=== PATIENT | female | born 2000 | race Caucasian/White ===

== ENCOUNTER 2022-07-08 10:23 | Inpatient (IN) ==
[2022-07-08 11:43] LABS: Basophils # (auto) 0.03 K/uL (0-0.2); Basophils % (auto) 0.4 %; Eosinophils # (auto) 0.07 K/uL (0-0.50); Hematocrit (blood only) 43.2 % (37.0-47.0); Hemoglobin 14.5 g/dl (12.0-16.0); Immature Granulocytes # (auto) 0.02 K/uL (0.01-0.20); Immature Granulocytes % (auto) 0.3 %; Lymphocytes # (auto) 1.37 K/uL (1.2-3.4); Lymphocytes % (auto) 19.1 %; Mean Corpuscular Hemoglobin 29.5 pg (25.0-34.0); Mean Corpuscular Hgb Conc 33.6 g/dL (32.0-36.0); Mean Corpuscular Volume 87.8 fL (80.0-100.0); Mean Platelet Volume 9.8 fL (9.4-12.4); Monocytes # (auto) 0.31 K/uL (0.11-0.59); Monocytes % (auto) 4.3 %; Neutrophils # (auto) 5.39 K/uL (1.40-6.50); Neutrophils % (auto) 74.9 %; Platelet Count 350 K/uL (130-400); RDW Coefficient of Variation 12.5 % (11.5-14.5); Red Blood Count 4.92 M/uL (4.20-5.40); White Blood Count 7.19 K/ul (4.8-10.8)
[2022-07-08 11:59] LABS: Albumin Level 4.3 gm/dl (3.4-5.0); Bilirubin,Total 0.4 mg/dl (0.2-1.0); Calcium 9.4 mg/dl (8.6-10.3); Potassium 3.9 mmol/L (3.5-5.1)
[2022-07-08 12:01] LABS: Acetaminophen < 3 ug/ml (10-30); Salicylate < 3.0 mg/dl (3.0-30)
[2022-07-08 12:05] LABS: Albumin Globulin Ratio 1.5 (0.9-2); BUN Creatinine Ratio 9.9 (10-20); Creatinine Clr Calc Pharmacy 108.9 ml/min; Est GFR (African American) 118.6 ml/min; Est GFR (Non-African American) 102.4 ml/min; Globulin 2.9 gm/dl (2.5-4.0); Total Protein 7.2 gm/dl (6.0-8.3)
[2022-07-08 12:18] LABS: Pregnancy Test, Serum Negative (Negative)
--- NOTE | 2022-07-08 12:39 | Emergency Department Note ---
Impression & Plan Depression with suicidal ideation ED Provider Note NAME: MARIA ELENA DIAZ AGE: 21 SEX: F ARRIVES VIA: Walk-In INFORMANT: Patient ED PROVIDER(S): Aquiles Silverman MD CHIEF COMPLAINT: Suicidal ideation PLAN: Disposition: Inpatient psychiatric treatment/bed search MEDICAL DECISION MAKING: The patient is a pleasant 21-year-old woman with a past medical history depr ession, migraine, borderline personality disorder who presents to the emergency department via walk-in for evaluation of suicidal ideation with plan to hang herself. Patient has a history of prior psychiatric admissions most recently in 2019 where she was treated at the [facility]. She she did try to kill her self by overdose when she was in high school. She reports feeling hopeless. She denies auditory hallucinations. She reports she patient was treated for an otitis media which is now improved. Otherwise she denies fevers, chills, cough, congestion, GI or symptoms. She is interested in voluntary psychiatric admission. On arrival the patient is no acute distress, afebrile stable vital signs. He is melancholy appearing. She endorses depression with suicidal ideation and plan. WBC, H/H and platelets within normal limits. Chemistry without metabolic acidosis. Electrolytes LFTs unremarkable. TSH within limits. hCG negative. UA without evidence of infection. COVID-19 RNA, KEISHA test was negative. Patient was medically cleared. The patient is interested in voluntary inpatient psychiatric treatment. Thus, bed search initiated for voluntary placement. The patient was accepted to [facility] for inpatient psychiatric treatment. 201 signed. Triage Nursing notes reviewed and agree them. Prior/outside medical records reviewed Vital Signs: reviewed Differential diagnosis: Mood disorder, infection, hypoglycemia, electrolyte abnormalities, cardiac sources, intracerebral event, toxicologic, trauma, neurologic, as well as other pathologies. ER treatment provided: See below. Laboratory studies: See below HPI: The patient is a pleasant 21-year-old woman with a past medical history depression, migraine, borderline personality disorder who presents to the emergency department via walk-in for evaluation of suicidal ideation with plan to hang herself. Patient has a history of prior psychiatric admissions most recently in 2018 where she was treated at the [facility]. She she did try to kill her self by overdose when she was in high school. She reports feeling hopeless. She denies auditory hallucinations. She reports she patient was treated for an otitis media which is now improved. Otherwise she denies fevers, chills, cough, congestion, GI or symptoms. She is interested in voluntary psychiatric admission. ROS: See above HPI for pertinent positives & negatives. A total of 10 systems reviewed and were otherwise negative. VITALS:See Below PHYSICAL EXAMINATION: GENERAL: Awake, alert, melancholy-appearing, in no distress HENT: Normocephalic, atraumatic. Oropharynx unremarkable. EYES: Normal conjunctiva. Sclera non-icteric. NECK: Supple. No nuchal rigidity. FROM. No JVD. RESPIRATORY: Clear to auscultation. CARDIAC: Regular rate, normal rhythm. Extremities warm and well perfused. Pulses equal. ABDOMEN: Soft, non-distended. No tenderness to palpation. No rebound or guarding. No masses. RECTAL: Deferred. MUSCULOSKELETAL: Chest examination reveals no tenderness. The back is symmetrical on inspection without obvious abnormality. There is no CVA tenderness to palpation. No joint edema. LOWER EXTREMITIES: Calves are equal size bilaterally and non-tender. No edema. No discoloration. NEURO: Normal sensorium. No sensory or motor deficits noted. SKIN: No rash or jaundice noted. PSYCH: Depression, suicidal ideation with plan. Denies auditory hallucinations. Aquiles Silverman MD Past Med/Surg History Medical History (Updated 07/08/22 @ 16:40 by Aquiles Silverman MD) Anxiety Borderline personality disorder Cephalalgia Depression Suicidal ideation Surgical History S/P cholecystectomy Status post myringotomy with insertion of tube Family History Other No significant family history Social History Smoking Status: Never smoker Hx Alcohol Use: No Hx Substance Use: No Preferred Language: Telugu Communication Ability: Effective Web Assistant Required: No Beliefs That Will Affect Care: None marital status: Single Current Living Situation: Other Current Living Situation Comment: Roommates current occupational status: student Feels Safe at Home: Yes Gender Identity: Female Assistive Devices: Glasses Assistive Devices Comment: glasses Allergies Allergies Allergy/AdvReac Type Severity Reaction Status Date / Time hydromorphone Allergy Mild chest pain Verified 12/29/21 15:47 clonidine AdvReac Intermediate HYPOTENSION Verified 12/29/21 15:47 camphor [From Biofreeze] AdvReac Unknown Rash Verified 12/29/21 15:47 menthol [From Biofreeze] AdvReac Unknown Rash Verified 12/29/21 15:47 topiramate [From Topamax] AdvReac Unknown KIDNEY Verified 12/29/21 15:47 STONES Dilaudid TABS Allergy Unknown Uncoded 12/29/21 15:47 Home Meds Home Medications Medication Instructions Recorded Confirmed levonorgestrel 21 mcg/24 hours (8 intrauterine 03/06/20 07/03/21 yrs) 52 mg intrauterine device (Mirena) amoxicillin 875 mg tablet 875 mg PO BID 07/08/22 07/08/22 lurasidone 20 mg tablet 20 mg PO DAILY 07/08/22 07/08/22 rizatriptan 10 mg tablet 10 mg PO DIRECTED 07/08/22 07/08/22 Previous Rx's Medication Instructions Recorded rimegepant 75 mg disintegrating 75 mg PO DAILY PRN migraine 12/29/21 tablet (Nurtec ODT) headache #8 tabs Results & Data (ED) Vital Signs Vital Signs - 24 hr 07/08/22 10:29 07/08/22 12:27 Temperature 36.8 C Temperature Source Skin Pulse Rate 94 H Pulse Rate [Left] 89 Respiratory Rate 20 18 Respiratory Effort / Characteristics Non-Labored Spontaneous Non-Labored Spontaneous Respiratory Depth Normal Normal Blood Pressure 128/81 Blood Pressure [Left Arm] 138/85 Blood Pressure Mean 96 Blood Pressure Mean [Left Arm] 102 Pulse Oximetry 97 99 Oxygen Delivery Method Room Air Room Air Sepsis Recent Fever Within 48 Hours No Sepsis New/Unexplained Change in Mental Status N/A Sepsis Action Taken by Nursing No Action Required Laboratory Data Attestation: I reviewed the patient's lab results. 07/08/22 11:23 07/08/22 11:23 Lab Results 07/08/22 07/08/22 07/08/22 Range/Units 10:46 11:23 11:23 WBC 7.19 (4.8-10.8) K/ul RBC 4.92 (4.20-5.40) M/uL Hgb 14.5 (12.0-16.0) g/dl Hct 43.2 (37.0-47.0) % MCV 87.8 (80.0-100.0) fL MCH 29.5 (25.0-34.0) pg MCHC 33.6 (32.0-36.0) g/dL RDW Std Deviation 40.0 (36.4-46.3) fL RDW Coeff of Roslyn 12.5 (11.5-14.5) % Plt Count 350 (130-400) K/uL MPV 9.8 (9.4-12.4) fL Immature Gran % (Auto) 0.3 % Neut % (Auto) 74.9 % Lymph % (Auto) 19.1 % [place] % (Auto) 4.3 % Eos % (Auto) 1.0 % Baso % (Auto) 0.4 % Neut # (Auto) 5.39 (1.40-6.50) K/uL Lymph # (Auto) 1.37 (1.2-3.4) K/uL [place] # (Auto) 0.31 (0.11-0.59) K/uL Eos # (Auto) 0.07 (0-0.50) K/uL Baso # (Auto) 0.03 (0-0.2) K/uL Immature Gran # (Auto) 0.02 (0.01-0.20) K/uL Sodium 139 (136-145) mmol/L Potassium 3.9 (3.5-5.1) mmol/L Chloride 105 (98-107) mmol/L Carbon Dioxide 27 (21-32) mmol/L Anion Gap 7 (3-11) BUN 8 (6-23) mg/dl Creatinine 0.81 (0.6-1.2) mg/dl Est Cr Clr Drug Dosing 108.9 ml/min Est GFR ( Amer) 118.6 ml/min Est GFR (Non-Af Amer) 102.4 ml/min BUN/Creatinine Ratio 9.9 L (10-20) Glucose 92 (70-99(Fasting)) mg/dl Calcium 9.4 (8.6-10.3) mg/dl Total Bilirubin 0.4 (0.2-1.0) mg/dl AST 23 (13-39) U/L ALT 36 (7-52) U/L Alkaline Phosphatase 98 (34-104) U/L Total Protein 7.2 (6.0-8.3) gm/dl Albumin 4.3 (3.4-5.0) gm/dl Globulin 2.9 (2.5-4.0) gm/dl Albumin/Globulin Ratio 1.5 (0.9-2) TSH (0.300-4.500) uIu/ml HCG, Qual (Negative) Salicylates (3.0-30) mg/dl Acetaminophen (10-30) ug/ml Ethyl Alcohol mg/dL (<10.0) mg/dl SARS-CoV-2, RNA, NAAT NEGATIVE (NEGATIVE) 07/08/22 07/08/22 07/08/22 Range/Units 11:23 11:23 11:23 WBC (4.8-10.8) K/ul RBC (4.20-5.40) M/uL Hgb (12.0-16.0) g/dl Hct (37.0-47.0) % MCV (80.0-100.0) fL MCH (25.0-34.0) pg MCHC (32.0-36.0) g/dL RDW Std Deviation (36.4-46.3) fL RDW Coeff of Roslyn (11.5-14.5) % Plt Count (130-400) K/uL MPV (9.4-12.4) fL Immature Gran % (Auto) % Neut % (Auto) % Lymph % (Auto) % [place] % (Auto) % Eos % (Auto) % Baso % (Auto) % Neut # (Auto) (1.40-6.50) K/uL Lymph # (Auto) (1.2-3.4) K/uL [place] # (Auto) (0.11-0.59) K/uL Eos # (Auto) (0-0.50) K/uL Baso # (Auto) (0-0.2) K/uL Immature Gran # (Auto) (0.01-0.20) K/uL Sodium (136-145) mmol/L Potassium (3.5-5.1) mmol/L Chloride (98-107) mmol/L Carbon Dioxide (21-32) mmol/L Anion Gap (3-11) BUN (6-23) mg/dl Creatinine (0.6-1.2) mg/dl Est Cr Clr Drug Dosing ml/min Est GFR ( Amer) ml/min Est GFR (Non-Af Amer) ml/min BUN/Creatinine Ratio (10-20) Glucose (70-99(Fasting)) mg/dl Calcium (8.6-10.3) mg/dl Total Bilirubin (0.2-1.0) mg/dl AST (13-39) U/L ALT (7-52) U/L Alkaline Phosphatase (34-104) U/L Total Protein (6.0-8.3) gm/dl Albumin (3.4-5.0) gm/dl Globulin (2.5-4.0) gm/dl Albumin/Globulin Ratio (0.9-2) TSH 0.718 (0.300-4.500) uIu/ml HCG, Qual (Negative) Salicylates < 3.0 L (3.0-30) mg/dl Acetaminophen < 3 L (10-30) ug/ml Ethyl Alcohol mg/dL < 10.0 (<10.0) mg/dl SARS-CoV-2, RNA, NAAT (NEGATIVE) 07/08/22 Range/Units 11:23 WBC (4.8-10.8) K/ul RBC (4.20-5.40) M/uL Hgb (12.0-16.0) g/dl Hct (37.0-47.0) % MCV (80.0-100.0) fL MCH (25.0-34.0) pg MCHC (32.0-36.0) g/dL RDW Std Deviation (36.4-46.3) fL RDW Coeff of Roslyn (11.5-14.5) % Plt Count (130-400) K/uL MPV (9.4-12.4) fL Immature Gran % (Auto) % Neut % (Auto) % Lymph % (Auto) % [place] % (Auto) % Eos % (Auto) % Baso % (Auto) % Neut # (Auto) (1.40-6.50) K/uL Lymph # (Auto) (1.2-3.4) K/uL [place] # (Auto) (0.11-0.59) K/uL Eos # (Auto) (0-0.50) K/uL Baso # (Auto) (0-0.2) K/uL Immature Gran # (Auto) (0.01-0.20) K/uL Sodium (136-145) mmol/L Potassium (3.5-5.1) mmol/L Chloride (98-107) mmol/L Carbon Dioxide (21-32) mmol/L Anion Gap (3-11) BUN (6-23) mg/dl Creatinine (0.6-1.2) mg/dl Est Cr Clr Drug Dosing ml/min Est GFR ( Amer) ml/min Est GFR (Non-Af Amer) ml/min BUN/Creatinine Ratio (10-20) Glucose (70-99(Fasting)) mg/dl Calcium (8.6-10.3) mg/dl Total Bilirubin (0.2-1.0) mg/dl AST (13-39) U/L ALT (7-52) U/L Alkaline Phosphatase (34-104) U/L Total Protein (6.0-8.3) gm/dl Albumin (3.4-5.0) gm/dl Globulin (2.5-4.0) gm/dl Albumin/Globulin Ratio (0.9-2) TSH (0.300-4.500) uIu/ml HCG, Qual Negative (Negative) Salicylates (3.0-30) mg/dl Acetaminophen (10-30) ug/ml Ethyl Alcohol mg/dL (<10.0) mg/dl SARS-CoV-2, RNA, NAAT (NEGATIVE) Administered Medications Amoxicillin (Amoxicillin Susp 400 Mg/5 Ml) 875 mg PO BID DANNY Stop: 07/14/22 09:00 Last Admin: 07/08/22 22:38 Dose: 875 mg Documented By: TAWANA Discontinued Medications Lurasidone HCl (Lurasidone Hcl 40 Mg Tab) 20 mg PO DAILY STA Stop: 07/08/22 21:18 Last Admin: 07/08/22 21:43 Dose: 20 mg Documented By: TAWANA Discharge Plan Visit Data Chief Complaint: Mental Health Evaluation Stated Complaint: MHE ED Provider: Aquiles Silverman Discharge Problem: Depression with suicidal ideation Patient Disposition: Admitted As Inpatient Discharge Instructions Interventions: ED Discharge Assessment Last Done: 07/08/22 17:01
[2022-07-08 14:13] LABS: Appearance Urine Clear (Clear); Bacteria Urine Automated Negative (Negative); Bilirubin Urine Negative (Negative); Blood Urine 2+ (Negative); Cast Urine Automated 0 /lpf (0-5); Color Urine Yellow; Epithelial Cell Urine Auto >30 /lpf (0-5); Glucose Urine UA Negative (Negative); Ketones Urine Negative (Negative); Leukocyte Esterase Urine Negative (Negative); Nitrite Urine Negative (Negative); Protein Urine Negative (Negative); Specific Gravity Urine 1.008 (1.000-1.030); Urobilinogen Urine Negative (Negative); pH Urine 6.5 (4.5-7.5)
[2022-07-08 15:27] LABS: Amphetamines+Metham, Urine Neg (Neg); Barbiturates, Urine Neg (Neg); Benzodiazepine, Urine Neg (Neg); Cocaine, Urine Neg (Neg); MDMA (Ecstacy), Urine Neg (Neg); Methadone, Urine Neg (Neg); Opiate, Urine Neg (Neg); Phencyclidine, Urine Neg (Neg)
[2022-07-08] MEDS ORDERED: MAGNESIUM HYDROXIDE SUSP 30 ML UDC PO PRN (16:33)
[2022-07-08] MEDS ORDERED: ALUMINUM/MAGNESIUM SUSP 30 ML UDC PO PRN (16:33)
[2022-07-08] MEDS ORDERED: hydrOXYzine HCl 25 MG TAB PO PRN ×2 (16:33)
[2022-07-08] MEDS ORDERED: ACETAMINOPHEN 325 MG TAB PO PRN (16:33)
[2022-07-08] MEDS ORDERED: BISMUTH SUBSALICYLATE LIQD 236 ML PO PRN (16:33)
[2022-07-08] MEDS ORDERED: SODIUM CHLORIDE 0.65% NA SOLN 45 ML (OCEAN) PRN (16:33)
[2022-07-08] MEDS ORDERED: RIZATRIPTAN BENZOATE 10 MG TAB PO SCH (16:45)
[2022-07-08] MEDS ORDERED: LURASIDONE 20 MG PO SCH (16:45)
[2022-07-08] MEDS ORDERED: AMOXICILLIN 875 MG PO SCH (21:00)
[2022-07-08] MEDS ORDERED: LURASIDONE HCL 40 MG TAB PO STA (21:17)
[2022-07-08] MEDS ORDERED: AMOXICILLIN 250 MG CAP PO SCH (22:00)
[2022-07-08] MEDS: AMOXICILLIN SUSP 400 MG/5 ML PO SCH (22:38)
[2022-07-09] MEDS: AMOXICILLIN SUSP 400 MG/5 ML PO SCH ×2 (08:52→20:40)
[2022-07-09] MEDS ORDERED: LURASIDONE HCL 40 MG TAB PO SCH ×3 (12:00)
--- NOTE | 2022-07-09 15:23 | History & Physical ---
Date of Service July 09, 2022 Impression / Recommendations Impression 21 y/o F with Hx bipolar II disorder and borderline personality disorder who is admitted with suicidal thoughts. She reports partial benefit (and no adverse effects) with low-dose lurasidone. (1) Bipolar II disorder, most recent episode major depressive: (2) Borderline personality disorder: Plan The patient was admitted to the [facility] ([facility]) on q15 min checks (behavioral with suicide precautions) for safety. The patient will participate in group, recreational, and milieu therapies and will be offered additional individual and family sessions as clinically appropriate. 07/09/2022: Risks and benefits of, and alternatives to, the use of lurasidone (Latuda) for mood were reviewed. This included but was not limited to issues known potentially to be associated with use of such medication, especially at high doses or with longer use, including sedation, weight gain, problems with glucose metabolism including Type II diabetes, problems with lipid metabolism, cardiac conduction problems, or rarely involuntary movements, parkinsonian symptoms, or even life-threatening Neuroleptic Malignant Syndrome. Discussed the need for periodic monitoring of fasting glucose or Hemoglobin A1c and lipid panel, and these were ordered for baseline monitoring. The patient agreed to increase in lurasidone. * increase lurasidone to 40 mg every day with lunch Inventory Assets Strengths: supportive relationships, has local supports,voluntary, good insight, intelli gent employed, Needs: safety and stabilization, medication adjustment, additional coping skills Suicide Risk Level Suicide Risk Level: Moderate (q15 min suicide checks) Risk Factors Assessment Male: No : Yes Do You Have Access To A Gun?: No Health Problems: No Mental Health Diagnoses: Yes Previous Attempt: Yes Previous Psychiatric Hospitalization: Yes Protective Factors Assessment Employed: Yes ([employer]) Stable Relationships: Yes Psychiatric History Identifying Data MARIA ELENA DIAZ is a 21-year-old F who currently lives in a house with her boyfriend, has a history of [], and was admitted on 07/08/22 16:33 on a 201 voluntary commitment for suicidal thoughts. Chief Complaint "Been suicidal". History of Present Illness As part of my review of the medical record, I read the following ED psychiatric case assemblermanager news: "The patient continues to express feeling suicidal with plan and intent to hang herself. She reports stressors of work and her fiancs mental health problems (reports he isnt doing well himself at this time). The patient reports depressive symptoms of anergia, anhedonia, crying spells and hyper- somnolence. The patient reports poor appetite and increased sleep (up to 12 hours per night). The patient reports no current manic symptoms but reports history of hypomania. The patient denies current self-injurious behaviors but reports a history of cutting when she was in high school. The patient reports a trauma / abuse history but requested not to elaborate at this time." Pt reports carrying a diagnosis of "bipolar II and borderline personality disorder" with a history of psychiatric admissions to [facility] in 2012 and 2018 and to [facility] in 2014. She reports a suicide attempt in 9th grade and intermittent non-suicidal self-injury intermittently since then. She's used a large number of medications. The longest was aripiprazole, which she took for 5 years, 3 of that on Abilify Maintena ("I wasn't good at remembering to take it") until "it just stopped working". More recently, she's been on lurasidone 20 mg at lunchtime, which she says "helped a lot with stability" but she feels as if "it's not working as well". Hasn't ever taken a higher dose. Past Psychiatric History Previous Psych History: unstable moods dating from adolescence, Dx'd with bipolar II and borderline personality disorder Current Psychiatric Diagnosis: MDD Previous Psych Admissions: [facility] in 2012 and 2018, [facility] in 2014 Do You Have Access To A Gun?: No History of Previous Suicide Attempt: No Allergies Allergy/AdvReac Type Severity Reaction Status Date / Time hydromorphone Allergy Mild chest pain Verified 12/29/21 15:47 clonidine AdvReac Intermediate HYPOTENSION Verified 12/29/21 15:47 camphor [From Biofreeze] AdvReac Unknown Rash Verified 12/29/21 15:47 menthol [From Biofreeze] AdvReac Unknown Rash Verified 12/29/21 15:47 topiramate [From Topamax] AdvReac Unknown KIDNEY Verified 12/29/21 15:47 STONES Dilaudid TABS Allergy Unknown Uncoded 12/29/21 15:47 Home Medications Medication Instructions Recorded Confirmed Type levonorgestrel 21 mcg/24 hours (8 intrauterine 03/06/20 07/03/21 History yrs) 52 mg intrauterine device (Mirena) rimegepant 75 mg disintegrating 75 mg PO DAILY PRN migraine 12/29/21 07/08/22 Rx tablet (Nurtec ODT) headache #8 tabs amoxicillin 875 mg tablet 875 mg PO BID 07/08/22 07/08/22 History lurasidone 20 mg tablet 20 mg PO DAILY 07/08/22 07/08/22 History rizatriptan 10 mg tablet 10 mg PO DIRECTED 07/08/22 07/08/22 History lorazepam 0.5 mg tablet 0.5 mg PO DAILY PRN Anxiety 07/09/22 07/09/22 History Family History Family History of: Doesn't Know Family Mental Health History Comment: Pt feels that family likely has mental health diagnoses but that they do not talk about it. Alcohol History Hx of Alcohol Use Over the Past 12 Months: No AUDIT Total Score: 0 Smoking Use Have You Smoked or Used Tobacco Products in the Last 30 Days: No tobacco type: cigarettes Smoking Status: Never smoker Substance History Hx of Prescription Med Misuse Over the Past 12 Months: No Hx of Over the Counter Med Misuse Over the Past 12 Months: No Hx of Inhalent Misuse Over the Past 12 Months: No Hx of Organic Substance Use Over the Past 12 Months: No Hx of Illegal Substances/Street Drug Use Over Past 12 Months: No Problems as a Result of Past Substance Use: None Identified Personal History Living Arrangements: Home Highest Grade Completed: College and Graduate School Highest Grade Completed Comment: [employer], [employer] for Masters in Elementary Ed, fully virtual and currently enrolled Marital Status: Living w/ Signif. Other Number Of Children: 0 Beliefs That Will Affect Care: None Patient History Medical History (Updated 07/09/22 @ 17:31 by Chevy Quintana MD) Anxiety Borderline personality disorder Cephalalgia Depression Suicidal ideation Surgical History S/P cholecystectomy Status post myringotomy with insertion of tube Family History Other No significant family history Social History Smoking Status: Never smoker Hx Alcohol Use: No Hx Substance Use: No Preferred Language: Malagasy Communication Ability: Effective Card Grinder Helper Required: No Beliefs That Will Affect Care: None marital status: Single Current Living Situation: Other Current Living Situation Comment: Roommates current occupational status: student Feels Safe at Home: Yes Gender Identity: Female Assistive Devices: Glasses Assistive Devices Comment: glasses Review of Systems Psychiatric: + depression, + anhedonia, + abnormal sleep pattern, + change in appetite and + anxiety; no hallucinations Physical Exam Psychiatric: Orientation: alert, oriented to person, oriented to place, oriented to time and cooperative Apperance: appropriately dressed and appropriately groomed Eye Contact: good eye contact Motor Behavior: steady gait and station and no abnormal motor movements Speech: normal rate/rhythm/volume of speech Affect: + constricted affect Mood: + depressed mood and + anxious mood Thought Process: + circumstantial thought process and + tangential thought process Thought Content: reality based without delusions Suicidal Thoughts: denies suicidal plan and denies suicidal intent; + reports suicidal thoughts Homicidal Thoughts: denies homicidal thoughts Hallucinations: no auditory hallucinations and no visual hallucinati ons Cognition: recent memory grossly intact and remote memory grossly intact Estimated Intelligence: average estimated intelligence Insight: + fair insight Judgment: + fair judgement Vital Signs (Past 24 Hours): Last Vital Signs Temp 36.5 C 07/09/22 06:48 Pulse 79 07/09/22 06:49 Resp 16 07/09/22 06:48 BP 125/84 07/09/22 06:49 Pulse Ox 96 07/08/22 17:14 O2 Del Method Room Air 07/08/22 17:14 Exam Statement: A physical exam was performed in the ED for the purposes of medical clearance. I accept that physical as correct and adequate for the purposes of the inpatient physical exam. Results & Data ([facility]) Laboratory Results Laboratory Results - last 24 hr 07/08/22 Unknown Urine Opiates Screen Neg Ur Methadone, Qual Neg Urine Barbiturates Neg Ur Phencyclidine (PCP) Neg U Amphetamin/Meth Scrn Neg MDMA (Ecstasy) Screen Neg U Benzodiazepines Scrn Neg Ur Cocaine Metabolite Neg U Marijuana (THC) Screen Neg Current Inpatient Medications Current Inpatient Medications: Current Inpatient Medications Acetaminophen (Acetaminophen 325 Mg Tab) 650 mg PO Q4H PRN PRN Reason: Headache or Minor Fever Stop: 08/07/22 16:32 Al Hydrox/Mg Hydrox/Simethicone (Aluminum/Magnesium Susp 30 Ml Udc) 30 ml PO Q4H PRN PRN Reason: GI Upset Stop: 08/07/22 16:32 Amoxicillin (Amoxicillin Susp 400 Mg/5 Ml) 875 mg PO BID DANNY Stop: 07/14/22 09:00 Last Admin: 07/09/22 08:52 Dose: 875 mg Bismuth Subsalicylate (Bismuth Subsalicylate Liqd 236 Ml) 15 ml PO PRN PRN PRN Reason: Loose Stool Stop: 08/07/22 16:32 Hydroxyzine HCl (Hydroxyzine Hcl 25 Mg Tab) 50 mg PO HSZ PRN PRN Reason: Insomnia Stop: 08/07/22 16:32 Hydroxyzine HCl (Hydroxyzine Hcl 25 Mg Tab) 25 mg PO Q4H PRN PRN Reason: Anxiety Stop: 08/07/22 16:32 Lurasidone HCl (Lurasidone Hcl 40 Mg Tab) 40 mg PO 1200 DANNY Stop: 08/08/22 11:59 Last Admin: 07/09/22 12:47 Dose: 40 mg Magnesium Hydroxide (Magnesium Hydroxide Susp 30 Ml Udc) 30 ml PO DAILY PRN PRN Reason: Constipation Stop: 08/07/22 16:32 Sodium Chloride (Sodium Chloride 0.65% Na Soln 45 Ml ([place])) 1 - 2 sprays NA PRN PRN PRN Reason: Nasal Dryness/Congestion Stop: 08/07/22 16:32
[2022-07-10] MEDS: AMOXICILLIN SUSP 400 MG/5 ML PO SCH ×2 (08:30→21:11)
[2022-07-10] MEDS ORDERED: KETOROLAC TROMETHAMINE 60 MG/2 ML VIAL IM ONE (10:00)
--- NOTE | 2022-07-10 11:15 | Psychiatric Progress Note ---
Date of Service July 10, 2022 Impression / Recommendations Impression 21 y/o F with Hx bipolar II disorder and borderline personality disorder who is admitted with suicidal thoughts. She reported partial benefit (and no adverse effects) with low-dose lurasidone. 07/10/2022: Pt greeted me at the unit door to inform me that she has a migraine that started last night. She says she told staff about it twice (but there are no notes reflecting this). She says "the only thing that will work now is Toradol". Lurasidone was increased to 40 mg with lunch yesterday and no problems were reported until today, when she said she wouldn't be taking that dose because "it made it so I couldn't tell where my hands were" yesterday. She asked for aripiprazole despite having previously reported it had become ineffective after having taken Abilify Maintena in the past. Pt spent some time discussing methods of self-injury using items available on the unit with another patient this morning. Discussed potential long-term mood stabilizer options in some depth. (1) Bipolar II disorder, most recent episode major depressive: (2) Borderline personality disorder: Plan The patient was admitted to the [facility] ([facility] mental [facility] unit) on q15 min checks (behavioral with suicide precautions) for safety. The patient will participate in group, recreational, and milieu therapies and will be offered additional individual and family sessions as clinically appropriate. 07/10/2022: Risks and benefits of, and alternatives to, the use of valproic acid derivatives such as divalproex for mood stabilization were reviewed. This included but was not limited to issues known potentially to be associated with use of such medication, including sedation, weight gain, liver injury, bone marrow suppression, or even pancreatitis. Discussed the need for periodic monitoring of liver functions, CBC, and valproic acid level. The patient agreed to start a trial of divalproex. * reduce lurasidone to 30 mg every day with lunch * start divalproex 500 mg QHS - anticipate titrating to 1,500 mg/day as tolerated to a trough blood level of 80-120 g/mL * ketorolac 60 mg IM once for migraine 07/09/2022: Risks and benefits of, and alternatives to, the use of lurasidone (Latuda) for mood were reviewed. This included but was not limited to issues known potentially to be associated with use of such medication, especially at high doses or with longer use, including sedation, weight gain, problems with glucose metabolism including Type II diabetes, problems with lipid metabolism, cardiac conduction problems, or rarely involuntary movements, parkinsonian symptoms, or even life-threatening Neuroleptic Malignant Syndrome. Discussed the need for periodic monitoring of fasting glucose or Hemoglobin A1c and lipid panel, and th mimi were ordered for baseline monitoring. The patient agreed to increase in lurasidone. * increase lurasidone to 40 mg every day with lunch Inventory Assets Strengths: supportive relationships, has local supports,voluntary, good insight, intelligent employed, Needs: safety and stabilization, medication adjustment, additional coping skills Suicide Risk Level Suicide Risk Level: Moderate (q15 min suicide checks) Suicide Risk Level Comments: denies current suicidal thoughts Risk Factors Assessment Male: No : Yes Do You Have Access To A Gun?: No Health Problems: No Mental Health Diagnoses: Yes Previous Attempt: Yes Previous Psychiatric Hospitalization: Yes Protective Factors Assessment Employed: Yes ([employer]) Stable Relationships: Yes Interval History Identifying Information MARIA ELENA DIAZ is a 21-year-old F who currently lives in a house with her boyfriend, has a history of bipolar II disorder and borderline personality disorder, and was admitted on 07/08/22 16:33 on a 201 voluntary commitment for suicidal thoughts. Chief Complaint "I have a migraine and they won't do anything about it". Review of Systems Sleep Information Total Hours of Sleep: 7 Sleep Comments: pt on q-15 minute checks Meal Information Percent Meal Consumed - Breakfast: 75 Percent Meal Consumed - Lunch: 75 Percent Meal Consumed - Dinner: 100 Subjective Subjective Patient was seen & assessed and interval progress reviewed with treatment team Physical Exam Psychiatric Orientation: alert, oriented to person, oriented to place, oriented to time and cooperative Apperance: appropriately dressed and appropriately groomed Eye Contact: good eye contact Motor Behavior: steady gait and station and no abnormal motor movements Speech: normal rate/rhythm/volume of speech Affect: + irritable affect Mood: + depressed mood and + anxious mood Thought Process: + circumstantial thought process and + tangential thought process Thought Content: reality based without delusions Suicidal Thoughts: denies suicidal plan and denies suicidal intent; + reports suicidal thoughts Homicidal Thoughts: denies homicidal thoughts Hallucinations: no auditory hallucinations and no visual hallucinations Cognition: recent memory grossly intact and remote memory grossly intact Estimated Intelligence: average estimated intelligence Insight: + fair insight Judgment: + fair judgement Vital Signs (Past 24 Hours) Last Vital Signs Temp 36.7 C 07/10/22 06:41 Pulse 79 07/10/22 06:41 Resp 16 07/10/22 06:41 BP 118/78 07/10/22 06:41 Pulse Ox 96 07/08/22 17:14 O2 Del Method Room Air 07/08/22 17:14 Results & Data ([facility]) Current Inpatient Medications Current Inpatient Medications: Current Inpatient Medications Acetaminophen (Acetaminophen 325 Mg Tab) 650 mg PO Q4H PRN PRN Reason: Headache or Minor Fever Stop: 08/07/22 16:32 Al Hydrox/Mg Hydrox/Simethicone (Aluminum/Magnesium Susp 30 Ml Udc) 30 ml PO Q4H PRN PRN Reason: GI Upset Stop: 08/07/22 16:32 Amoxicillin (Amoxicillin Susp 400 Mg/5 Ml) 875 mg PO BID DANNY Stop: 07/14/22 09:00 Last Admin: 07/10/22 08:30 Dose: 875 mg Bismuth Subsalicylate (Bismuth Subsalicylate Liqd 236 Ml) 15 ml PO PRN PRN PRN Reason: Loose Stool Stop: 08/07/22 16:32 Hydroxyzine HCl (Hydroxyzine Hcl 25 Mg Tab) 50 mg PO HSZ PRN PRN Reason: Insomnia Stop: 08/07/22 16:32 Hydroxyzine HCl (Hydroxyzine Hcl 25 Mg Tab) 25 mg PO Q4H PRN PRN Reason: Anxiety Stop: 08/07/22 16:32 Lurasidone HCl (Lurasidone Hcl 40 Mg Tab) 40 mg PO 1200 DANNY Stop: 08/08/22 11:59 Last Admin: 07/09/22 12:47 Dose: 40 mg Magnesium Hydroxide (Magnesium Hydroxide Susp 30 Ml Udc) 30 ml PO DAILY PRN PRN Reason: Constipation Stop: 08/07/22 16:32 Sodium Chloride (Sodium Chloride 0.65% Na Soln 45 Ml ([place])) 1 - 2 sprays NA PRN PRN PRN Reason: Nasal Dryness/Congestion Stop: 08/07/22 16:32 Mental Health & Subst Abuse Tx Psychiatrist Name of Psychiatrist: Patrick Lucio Azalia Fernandez Psychiatrist's Date Of Appointment With Psychiatric Provider: 07/16/2022 Time of Appointment with Psychiatrist: 8:45am Psychiatric Appointment Comment: [address] [place] [address]
[2022-07-10] MEDS: LURASIDONE HCL 40 MG TAB PO SCH (12:18)
[2022-07-10] MEDS ORDERED: LORazepam 0.5 MG TAB PO STA (12:43)
[2022-07-10] MEDS ORDERED: DIVALPROEX EXTENDED RELEASE 500 MG TAB PO SCH (22:00)
[2022-07-11] MEDS: AMOXICILLIN SUSP 400 MG/5 ML PO SCH ×2 (08:51→20:15)
[2022-07-11] MEDS: LURASIDONE HCL 40 MG TAB PO SCH (12:41)
--- NOTE | 2022-07-11 13:47 | Psychiatric Progress Note ---
Date of Service July 11, 2022 Impression / Recommendations Impression 21 y/o F with Hx bipolar II disorder and borderline personality disorder who is admitted with suicidal thoughts with plan. Diagnostically consistent with acute exacerbation of borderline personality disorder with symptoms of depression. 07/11/2022: Mood improving a bit today, though ongoing periods of increased irritability at times. Reviewed medication options in detail. Discussed risks, benefits and alternatives. Patient would like to start and consented to abilify for mood stabilization for BPAD type II (she understands no FDA-approved medications for BPD) and to discontinue latuda and depakote. Reviewed side effects including but not limited to: movement (TD, NMS), cardiac (QTc prolongation), and metabolic (stroke, insulin resistance) and necessity for fasting lipid and glucose labwork (reviewed that [place] just checked these in April and results were all normal so she declines repeat labs) and AIMS done with score of 0. (1) Bipolar II disorder, most recent episode major depressive: (2) Borderline personality disorder: Plan 07/11/2022: Discontinue Latuda. Discontinue Depakote. Start Abilify 10mg HS po. 07/10/2022: Risks and benefits of, and alternatives to, the use of valproic acid derivatives such as divalproex for mood stabilization were reviewed. This included but was not limited to issues known potentially to be associated with use of such medication, including sedation, weight gain, liver injury, bone marrow suppression, or even pancreatitis. Discussed the need for periodic monitoring of liver functions, CBC, and valproic acid level. The patient agreed to start a trial of divalproex. * reduce lurasidone to 30 mg every day with lunch * start divalproex 500 mg QHS - anticipate titrating to 1,500 mg/day as tolerated to a trough blood level of 80-120 g/mL * ketorolac 60 mg IM once for migraine 07/09/2022:The patient was admitted to the [facility] ([facility] inpatient mental health unit) on q15 min checks (behavioral with suicide precautions) for safety. The patient will participate in group, recreational, and milieu therapies and will be offered additional individual and family sessions as clinically appropriate. Risks and benefits of, and alternatives to, the use of lurasidone (Latuda) for mood were reviewed. This included but was not limited to issues known potentially to be associated with use of such medication, especially at high doses or with longer use, including sedation, weight gain, problems with glucose metabolism including Type II diabetes, problems with lipid metabolism, cardiac conduction problems, or rarely involuntary movements, parkinsonian symptoms, or even life-threatening Neuroleptic Malignant Syndrome. Discussed the need for periodic monitoring of fasting glucose or Hemoglobin A1c and lipid panel, and these were ordered for baseline monitoring. The patient agreed to increase in lurasidone. * increase lurasidone to 40 mg every day with lunch Inventory Assets Strengths: supportive relationships, has local supports,voluntary, good insight, intelligent employed, Needs: safety and stabilization, medication adjustment, additional coping skills Suicide Risk Level Suicide Risk Level: Moderate (q15 min suicide checks) (mood starting to improve and denies SI today. ) Risk Factors Assessment Male: No : Yes Do You Have Access To A Gun?: No Health Problems: No Mental Health Diagnoses: Yes Previous Attempt: Yes Previous Psychiatric Hospitalization: Yes Protective Factors Assessment Employed: Yes ([employer]) Stable Relationships: Yes Interval History Identifying Information MARIA ELENA DIAZ is a 21-year-old F who currently lives in a house with her boyfriend, has a history of bipolar II disorder and borderline personality disorder, and was admitted on 07/08/22 16:33 on a 201 voluntary commitment for suicidal thoughts. Chief Complaint "I'm starting to feel more like myself". Review of Systems Sleep Information Total Hours of Sleep: 7.5 Sleep Comments: pt on q-15 minute checks Meal Information Percent Meal Consumed - Breakfast: 100 Percent Meal Consumed - Lunch: 100 Percent Meal Consumed - Dinner: 75 Subjective Subjective Patient was seen & assessed and interval progress reviewed with treatment team nursing and social work. At times periods of splitting. Feels her mood is starting to improve and feeling safer. Reflects that changing dynamic on the unit has been helpful in allowing her to feel more "safe" and able to open up with peers and "let me guard down" in groups. Reviewed her history of borderline personality disorder and diagnosis about one year ago of BPAD type II. Reviewed medication options, she would like to go back on abilify which worked well for her in the past as she doesn't find the latuda particularly helpful. Also discussed that she is interested in starting a family at some point in the near future and therefore prefers to discontinue depakote rather than having to taper it later on. Physical Exam Psychiatric Orientation: alert, oriented to person, oriented to place, oriented to time and cooperative Apperance: appropriately dressed and appropriately groomed Eye Contact: good eye contact Motor Behavior: steady gait and station and no abnormal motor movements Speech: normal rate/rhythm/volume of speech Affect: euthymic affect, + labile affect and + irritable affect Mood: + depressed mood and + anxious mood Thought Process: goal directed thought process Thought Content: reality based without delusions Suicidal Thoughts: denies suicidal thoughts, denies suicidal plan and denies suicidal intent Homicidal Thoughts: denies homicidal thoughts Hallucinations: no auditory hallucinations and no visual hallucinations Cognition: recent memory grossly intact and remote memory grossly intact Estimated Intelligence: average estimated intelligence Insight: + fair insight Judgment: + limited judgement Vital Signs (Past 24 Hours) Last Vital Signs Temp 36.7 C 07/11/22 06:00 Pulse 74 07/11/22 06:00 Resp 18 07/11/22 06:00 BP 118/76 07/11/22 06:20 Pulse Ox 97 07/11/22 06:00 O2 Del Method Room Air 07/11/22 06:00 Results & Data ([facility]) Current Inpatient Medications Current Inpatient Medications: Current Inpatient Medications Acetaminophen (Acetaminophen 325 Mg Tab) 650 mg PO Q4H PRN PRN Reason: Headache or Minor Fever Stop: 08/07/22 16:32 Al Hydrox/Mg Hydrox/Simethicone (Aluminum/Magnesium Susp 30 Ml Udc) 30 ml PO Q4H PRN PRN Reason: GI Upset Stop: 08/07/22 16:32 Amoxicillin (Amoxicillin Susp 400 Mg/5 Ml) 875 mg PO BID DANNY Stop: 07/14/22 09:00 Last Admin: 07/11/22 08:51 Dose: 875 mg Bismuth Subsalicylate (Bismuth Subsalicylate Liqd 236 Ml) 15 ml PO PRN PRN PRN Reason: Loose Stool Stop: 08/07/22 16:32 Divalproex Sodium (Divalproex Extended Release 500 Mg Tab) 500 mg PO HS DANNY Stop: 08/09/22 21:59 Last Admin: 07/10/22 21:11 Dose: 500 mg Hydroxyzine HCl (Hydroxyzine Hcl 25 Mg Tab) 50 mg PO HSZ PRN PRN Reason: Insomnia Stop: 08/07/22 16:32 Hydroxyzine HCl (Hydroxyzine Hcl 25 Mg Tab) 25 mg PO Q4H PRN PRN Reason: Anxiety Stop: 08/07/22 16:32 Lurasidone HCl (Lurasidone Hcl 40 Mg Tab) 30 mg PO 1200 DANNY Stop: 08/09/22 11:59 Last Admin: 07/11/22 12:41 Dose: 30 mg Magnesium Hydroxide (Magnesium Hydroxide Susp 30 Ml Udc) 30 ml PO DAILY PRN PRN Reason: Constipation Stop: 08/07/22 16:32 Sodium Chloride (Sodium Chloride 0.65% Na Soln 45 Ml ([place])) 1 - 2 sprays NA PRN PRN PRN Reason: Nasal Dryness/Congestion Stop: 08/07/22 16:32 Mental Health & Subst Abuse Tx Psychiatrist Name of Psychiatrist: Patrick Fernandez Psychiatrist's Date Of Appointment With Psychiatric Provider: 07/16/2022 Time of Appointment with Psychiatrist: 8:45am Psychiatric Appointment Comment: [address] [place] [address]
[2022-07-11] MEDS: ARIPiprazole 10 MG TAB PO SCH (20:15)
[2022-07-12] MEDS ORDERED: LORazepam 0.5 MG TAB PO PRN (15:28)
--- NOTE | 2022-07-12 15:31 | Psychiatric Progress Note ---
Date of Service July 12, 2022 Impression / Recommendations Impression 21 y/o F with Hx bipolar II disorder and borderline personality disorder who is admitted with suicidal thoughts with plan. Diagnostically consistent with acute exacerbation of borderline personality disorder with symptoms of depression. 07/12/2022: Mood continuing to improve steadily with no SI. Still with some anxiety but she's using coping strategies to manage this. Tolerated the initial dose of abilify well, will monitor to ensure continued tolerance and benefit. (1) Bipolar II disorder, most recent episode major depressive: (2) Borderline personality disorder: Plan 07/12/2022: Continue abilify 10mg HS po. Support meeting held. 07/11/2022: Discontinue Latuda. Discontinue Depakote. Start Abilify 10mg HS po. 07/10/2022: Risks and benefits of, and alternatives to, the use of valproic acid derivatives such as divalproex for mood stabilization were reviewed. This included but was not limited to issues known potentially to be associated with use of such medication, including sedation, weight gain, liver injury, bone marrow suppression, or even pancreatitis. Discussed the need for periodic monitoring of liver functions, CBC, and valproic acid level. The patient agreed to start a trial of divalproex. * reduce lurasidone to 30 mg every day with lunch * start divalproex 500 mg QHS - anticipate titrating to 1,500 mg/day as tolerated to a trough blood level of 80-120 g/mL * ketorolac 60 mg IM once for migraine 07/09/2022:The patient was admitted to the [facility] ([facility] unit) on q15 min checks (behavioral with suicide precautions) for safety. The patient will participate in group, recreational, and milieu therapies and will be offered additional individual and family sessions as clinically appropriate. Risks and benefits of, and alternatives to, the use of lurasidone (Latuda) for mood were reviewed. This included but was not limited to issues known potentially to be associated with use of such medication, especially at high doses or with longer use, including sedation, weight gain, problems with glucose metabolism including Type II diabetes, problems with lipid metabolism, cardiac conduction problems, or rarely involuntary movements, parkinsonian symptoms, or even life-threatening Neuroleptic Malignant Syndrome. Discussed the need for periodic monitoring of fasting glucose or Hemoglobin A1c and lipid panel, and these were ordered for baseline monitoring. The patient agreed to increase in lurasidone. * increase lurasidone to 40 mg every day with lunch Inventory Assets Strengths: supportive relationships, has local supports,voluntary, good insight, intelligent employed, Needs: safety and stabilization, medication adjustment, additional coping skills Suicide Risk Level Suicide Risk Level: Moderate (q15 min suicide checks) (mood starting to improve and denies SI today. ) Risk Factors Assessment Male: No : Yes Do You Have Access To A Gun?: No Health Problems: No Mental Health Diagnoses: Yes Previous Attempt: Yes Previous Psychiatric Hospitalization: Yes Protective Factors Assessment Employed: Yes ([employer]) Stable Relationships: Yes Interval History Identifying Information MARIA ELENA DIAZ is a 21-year-old F who currently lives in a house with her boyfriend, has a history of bipolar II disorder and borderline personality disorder, and was admitted on 07/08/22 16:33 on a 201 voluntary commitment for suicidal thoughts. Chief Complaint "I feel good". Review of Systems Sleep Information Total Hours of Sleep: 8.25 Sleep Comments: pt on q-15 minute checks Meal Information Percent Meal Consumed - Breakfast: 100 Percent Meal Consumed - Lunch: 75 Percent Meal Consumed - Dinner: 50 Subjective Subjective Patient was seen & assessed and interval progress reviewed with treatment team nursing and social work. Completed her safety plan. Had support meeting with her fiancee and his mother this morning that felt supportive. She liked the switch to abilify last night and did not notice any side effects. Denies SI. Mood is stable. Worries about stressors including at work but also feeling ready to get back to work soon. Physical Exam Psychiatric Orientation: alert, oriented to person, oriented to place, oriented to time and cooperative Apperance: appropriately dressed and appropriately groomed Eye Contact: good eye contact Motor Behavior: steady gait and station and no abnormal motor movements Speech: normal rate/rhythm/volume of speech Affect: euthymic affect Mood: + anxious mood Thought Process: goal directed thought process Thought Content: reality based without delusions Suicidal Thoughts: denies suicidal thoughts, denies suicidal plan and denies suicidal intent Homicidal Thoughts: denies homicidal thoughts Hallucinations: no auditory hallucinations and no visual hallucinations Cognition: recent memory grossly intact and remote memory grossly intact Estimated Intelligence: average estimated intelligence Insight: + fair insight Judgment: + fair judgement Vital Signs (Past 24 Hours) Last Vital Signs Temp 36.3 C L 07/12/22 06:00 Pulse 71 07/12/22 06:00 Resp 18 07/12/22 06:00 BP 114/76 07/12/22 06:37 Pulse Ox 97 07/12/22 06:00 O2 Del Method Room Air 07/12/22 06:00 Results & Data ([facility]) Current Inpatient Medications Current Inpatient Medications: Current Inpatient Medications Acetaminophen (Acetaminophen 325 Mg Tab) 650 mg PO Q4H PRN PRN Reason: Headache or Minor Fever Stop: 08/07/22 16:32 Al Hydrox/Mg Hydrox/Simethicone (Aluminum/Magnesium Susp 30 Ml Udc) 30 ml PO Q4H PRN PRN Reason: GI Upset Stop: 08/07/22 16:32 Aripiprazole (Aripiprazole 10 Mg Tab) 10 mg PO HS DANNY Stop: 08/10/22 21:59 Last Admin: 07/11/22 20:15 Dose: 10 mg Bismuth Subsalicylate (Bismuth Subsalicylate Liqd 236 Ml) 15 ml PO PRN PRN PRN Reason: Loose Stool Stop: 08/07/22 16:32 Hydroxyzine HCl (Hydroxyzine Hcl 25 Mg Tab) 50 mg PO HSZ PRN PRN Reason: Insomnia Stop: 08/07/22 16:32 Hydroxyzine HCl (Hydroxyzine Hcl 25 Mg Tab) 25 mg PO Q4H PRN PRN Reason: Anxiety Stop: 08/07/22 16:32 Lorazepam (Lorazepam 0.5 Mg Tab) 0.5 mg PO DAILY PRN PRN Reason: Anxiety Stop: 08/11/22 15:27 Magnesium Hydroxide (Magnesium Hydroxide Susp 30 Ml Udc) 30 ml PO DAILY PRN PRN Reason: Constipation Stop: 08/07/22 16:32 Sodium Chloride (Sodium Chloride 0.65% Na Soln 45 Ml ([place])) 1 - 2 sprays NA PRN PRN PRN Reason: Nasal Dryness/Congestion Stop: 08/07/22 16:32 Mental Health & Subst Abuse Tx Psychiatrist Name of Psychiatrist: Patrick Fernandez Psychiatrist's Date Of Appointment With Psychiatric Provider: 07/16/2022 Time of Appointment with Psychiatrist: 8:45am Psychiatric Appointment Comment: [address] [place] [address] Therapist Name of Therapist: [facility] Therapist's Special Education Itinerant Teacher Name of Special Education Itinerant Teacher: Sixto Pharmaxis ([facility]) Phone Number for Special Education Itinerant Teacher: [phone] Time of Appointment with Special Education Itinerant Teacher: [email or web address] Appointment Comment: Contact Elizabeth if they do not reach out to you to discuss [facility] services. Post Discharge Appointments Primary Care Physician Name Of Family Doctor/PCP: Patrick Lucio- Dr. Lion Primary Care Provider Appointment Comment: Please follow up if needed. Contact Information Discharge Discharge [address]: [address] [place] [address] [place] [id number]
[2022-07-12] MEDS: ARIPiprazole 10 MG TAB PO SCH (20:48)
[2022-07-13] MEDS ORDERED: DESTROY THIS MEDICATION ONE (08:03)
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
== END 2022-07-13 10:16 | disposition home or self-care (01) | DRG 883 ==
LOC: ED 10:23 → 3S 16:33 → SUATTDRO 16:33 → 3S 17:01